=== PATIENT | female | born 2000 | race Caucasian/White ===

== ENCOUNTER 2022-07-28 18:08 | Emergency (ER) | payer MEDICAID ==
[~2022-07-28] VITALS: Ht 157.5 cm; Wt 75.3 kg
[2022-07-28 18:37] VITALS: BP 122/71
[2022-07-28] MEDS ORDERED: IBUP-2213 PO (19:23)
--- NOTE | 2022-07-28 20:00 | NUR ---
Patient discharged with v/s stable. Written and verbal after care instructions given and explained. Patient alert, oriented and verbalized understanding of instructions. Ambulatory with steady gait on cruthces. All questions addressed prior to discharge. ID band removed. Patient advised to follow up with PMD. Rx of MOTRIN given. Patient educated on indication of medication including possible reaction and side effects. Opportunity to ask questions provided and answered.
== END 2022-07-28 20:00 | disposition home or self-care (01) ==
LOC: MED 18:08
DX: S93.401A Sprain of unspecified ligament of right ankle, initial encounter (principal); R03.0 Elevated blood-pressure reading, without diagnosis of hypertension; Z79.899 Other long term (current) drug therapy; X58.XXXA Exposure to other specified factors, initial encounter; Y93.56 Activity, jumping rope; Y92.89 Other specified places as the place of occurrence of the external cause; Y99.8 Other external cause status
CPT/HCPCS: 29515; 73610; 99283

== ENCOUNTER 2023-01-11 12:31 | Emergency (ER) | payer OTHER, MEDICAID ==
[~2023-01-11] VITALS: Ht 157.5 cm; Wt 81.6 kg
[~2023-01-11 12:31] MED LIST: IBUP-2213 PO
[2023-01-11 13:10] VITALS: BP 136/81
[2023-01-11] MEDS ORDERED: IBUP-2213 PO (14:43)
[2023-01-11 14:56] VITALS: BP 113/74
== END 2023-01-11 14:56 | disposition home or self-care (01) ==
LOC: MED 12:31
DX: G89.29 Other chronic pain (principal); M25.571 Pain in right ankle and joints of right foot; M25.371 Other instability, right ankle; Z79.1 Long term (current) use of non-steroidal anti-inflammatories (NSAID)
CPT/HCPCS: 73610; 99283